=== PATIENT | male | born 1960 | race Hispanic/Latino ===

== ENCOUNTER 2018-05-21 19:15 | Emergency (ER) | payer SELFPAY ==
[2018-05-21 19:17] VITALS: BP 140/80; PULSE 99; RESP 16; TEMP 36.5; O2SAT 97; BMI 37.3
--- NOTE | 2018-05-21 19:30 | ED.DCSUM_ITS ---
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 History of Present Illness: The patient is a 57 M [] passing through the area from the [facility] to trip to [place], he is out of his lisinopril 30 mg daily he did take a dose today he has no way to get the prescription refilled he came to the emergency department he has no other complaints, he has been in very good health Physical Examination: [] 140/80 General, no distress resting comfortably HEENT is generally unremarkable The neck is supple no adenopathy Cardiovascular, regular rate and rhythm Lungs, clear bilateral Abdomen, soft nontender Extremities, no clubbing cyanosis or edema Neurologic, awake alert answering questions appropriately moving all 4 extremities Had a long conversation with the patient indicates he simply needs the lisino pril refilled he is otherwise not sick in any way he has no way to get it filled he prefers a 90-day supply as per pharmacy regulations this costs him last so he was given lisinopril 1 daily #90 no refills he will follow-up with his outpatient providers when he is home Test Results: [] Emergency Department Course and Treatment: [] I did explain to him that the emergency department cannot assume management of his hypertension this is done due to the unique nature of his circumstance Treatment Plan: [] Disposition: [] Home stable Impression: [] Hypertension requesting medication refill This note was generated with [employer] dictation software. It may contain incorrect words, spelling, and punctuation that were not noted in review of the chart prior to signing ED Disposition - Plan for ED Patient: Chief Complaint: Med Refill
--- NOTE | 2018-05-21 19:30 | ED.DEP ---
ED Disposition - Plan for ED Patient: Chief Complaint: Med Refill Prescriptions: Lisinopril [Zestril] 30 mg PO BID #90 tab
[2018-05-21 20:12] VITALS: RESP 18
== END 2018-05-21 20:13 | disposition home or self-care (01) ==
LOC: ED 20:07
PROVIDERS: Emergency Provider Emergency Medicine
DX: I10 Essential (primary) hypertension (principal); Z76.0 Encounter for issue of repeat prescription
CPT/HCPCS: 99282